=== PATIENT | female | born 1995 | race Caucasian/White ===

== ENCOUNTER 2017-06-04 11:14 | Emergency (ER) | payer OTHER ==
[~2017-06-04 11:14] MED LIST: Iopamidol 370 76% 100 ML VIAL ONE
[2017-06-04 11:53] LABS: #Basophils 0.1 thou/uL (0.0-0.2); #Eosinphils 0.1 thou/uL (0.0-0.7); #Lymphocytes 3.2 thou/uL (1.20-3.40); #Monocytes 0.3 thou/uL (0.11-0.59); #Neutrophils 6.5 thou/uL (1.40-6.50); %Basophils 0.8 % (0.0-1.0); %Eosinophils 0.8 % (0.0-10.0); %Lymphocytes 31.3 % (21.0-51.0); %Monocytes 3.4 % (0.0-10.0); %Neutrophils 63.7 % (42.0-75.0); Hemoglobin 13.4 g/dL (12.0-16.0); Mean Corpuscular HGB CONC 33.9 g/dL (32.0-36.0); Mean Corpuscular Hemoglobin 29.4 pg (27.0-31.0); Mean Corpuscular Volume 86.9 fl (81.0-99.0); Mean Platelet Volume 8.5 fL (7.4-10.4); Platelet Count 281 thou/uL (130-400); RBC Distribution Width 11.6 % (11.5-14.5); Red Blood Cell (RBC) Count 4.55 mill/uL (4.20-5.40); White Blood Cell (WBC) Count 10.2 thou/uL (4.8-10.8)
[2017-06-04 12:00] LABS: BHCG - Serum Negative (NEGATIVE); Pregs Control Background? CLEAR/WHITE (CLR/WHITE); Pregs Control Bar Appear? YES (CONTROL BAR)
[2017-06-04 12:10] LABS: ALT (SGPT) 16 U/L (8-55); AST (SGOT) 21 U/L (5-34); Albumin 4.2 g/dL (3.5-5.0); Alkaline Phosphatase 52 U/L (40-150); Anion Gap 14 mmol/L (10-20); BUN (Urea Nitrogen) 14 mg/dL (7.0-18.7); Bilirubin, Total 0.5 mg/dL (0.2-1.2); Calc. Creatinine Clearance 0 mL/min (70-130); Calcium 9.7 mg/dL (7.8-10.44); Carbon Dioxide 23 mmol/L (22-29); Chloride 104 mmol/L (98-107); Estimated GFR-MDRD 89; Globulin 2.9 g/dL (2.4-3.5); Glucose 112 mg/dL (70-105); Potassium 3.4 mmol/L (3.5-5.1); Protein, Total 7.1 g/dL (6.0-8.3); Sodium 138 mmol/L (136-145)
[2017-06-04 12:12] LABS: CKMB 0.6 ng/mL (0-6.6); Troponin I Less than 0.010 ng/mL (< 0.028)
[2017-06-04] MEDS ORDERED: diphenhydrAMINE 50 MG/ML VIAL ONE (12:28)
[2017-06-04] MEDS ORDERED: Ketorolac Tromethamine 30 MG/ML VIAL ONE (12:28)
[2017-06-04] MEDS ORDERED: methylPREDNISolone Sod Succ/PF 125 MG/2 ML VIAL ONE (12:29)
[2017-06-04] MEDS ORDERED: Metoclopramide HCl 10 MG/2 ML VIAL ONE (12:29)
--- NOTE | 2017-06-04 13:16 | CT ---
CT OF THE BRAIN WITHOUT CONTRAST: Date: 06/04/17 INDICATION: 21-year-old female for near syncopal episode, migraine, and chest pain. COMPARISON: None. FINDINGS: No acute infarct, hemorrhage, or hydrocephalus is present. The skull and extracranial soft tissues ap pear within normal limits. There is mild soft tissue swelling involving the right frontal scalp. Skul l is intact. Mastoid air cells and paranasal sinuses are clear. IMPRESSION: 1. Findings suspicious for a small right frontal scalp contusion. 2. No acute intracranial abnormality demonstrated. POS: MICHAEL
--- NOTE | 2017-06-04 13:39 | CT ---
CT ANGIOGRAM THORAX WITH IV CONTRAST AND 3D RECONSTRUCTIONS: Date: 06-04-17 History: Chest pain, dyspnea. Syncope. Comparison: None available. FINDINGS: No filling defects are seen in the pulmonary arteries to suggest a pulmonary embolus. The thoracic ao rta is normal in caliber without evidence of an aortic dissection. There is soft tissue density in the anterior superior mediastinum likely related to residual thymus. There is a less than 4 mm pulmonary nodule in the lateral aspect of the right upper lobe. A 5 mm nonc alcified pulmonary nodule is seen in the right middle lobe with a much smaller, approximately 3 mm, p ulmonary nodule also seen in the right middle lobe. There is a small nodular density also seen in the right lower lobe measuring 4 mm. There is a very tiny pulmonary nodule seen in the region of the toby gula. Minimal pleural based nodular densities are seen in the posterior aspects of each lower lobe. T here is no consolidation or pleural fluid seen. There is no evidence of lymphadenopathy. Visualized upper abdomen demonstrates a normal CT appearance for arterial phase of imaging. IMPRESSION: 1. Bilateral pulmonary nodules, all of which measure 5 mm or less as described above. These pulmonary nodules are overall nonspecific, especially given patient's young age. However, given multiplicity, a 6 month follow up evaluation may be helpful. 2. No CT evidence of a pulmonary embolus. POS: MICHAEL
== END 2017-06-04 13:42 | disposition home or self-care (01) ==
LOC: SCSER 11:14
DX: S00.83XA Contusion of other part of head, initial encounter (principal); R55 Syncope and collapse; R51 Headache; R91.8 Other nonspecific abnormal finding of lung field; F32.9 Major depressive disorder, single episode, unspecified; F17.210 Nicotine dependence, cigarettes, uncomplicated; W01.190A Fall on same level from slipping, tripping and stumbling with subsequent striking against furniture, initial encounter
CPT/HCPCS: 70450; 71275; 80053; 82553; 84484; 84703; 85025; 93005; 96361; 96374; 96375; J1200; J1885; J2765; J2930